=== PATIENT | female | born 1965 | race Caucasian/White ===

== ENCOUNTER 2019-02-26 10:49 | Outpatient (REF) | payer BC, SELFPAY ==
[2019-02-26 16:18] LABS: Absolute Basophil Count 0.03 k/cumm (0.0-0.2); Absolute Eosinophil Count 0.16 k/cumm (0.0-0.7); Absolute Monocyte Count 0.69 k/cumm (0.11-0.7); Absolute Neutrophil Count 4.36 k/cumm (1.2-6.7); Basophils % 0.5; Eosinophils % 2.4; HCT 43.8 % (36.0-46.0); HGB 14.6 g/dL (12.0-15.5); Lymphocytes % 21.1; Mean Corp. HGB Concentration 33.3 g/dL (32.0-36.0); Mean Corpuscular Hemoglobin 33.3 pg (27.0-33.0); Mean Corpuscular Volume 99.8 fL (80-95); Mean Platelet Volume 10.4 fL (8.0-11.0); Monocytes % 10.4; Neutrophils % 65.6; Platelet Count 216 x1000/uL (130-400); RBC 4.39 m/cumm (4.00-5.20); RBC Distribution Width 12.6 % (11.7-14.6); White Blood Cell Count 6.64 k/cumm (4.4-10.8)
[2019-02-26 16:38] LABS: ALT 33 U/L (14-59); AST 26 U/L (15-37); Albumin 4.5 g/dL (3.4-5.0); Alkaline Phosphatase 90 U/L (46-116); BUN 17 mg/dL (7-18); Bilirubin, Total 1.2 mg/dL (0.2-1.0); CREATININE 0.77 mg/dL (0.55-1.02); Calcium 9.5 mg/dL (8.5-10.1); Calculated LDL 177 mg/dL; Chloride 101 mmol/L (98-107); Cholesterol 286 mg/dL (<200); Glucose 95 mg/dL (74-106); HDL Cholesterol 76 mg/dL (40-60); Potassium 3.9 mmol/L (3.5-5.1); Sodium 139 mmol/L (136-145); TSH (W/Ref FT4) 2.99 uIU/mL (0.36-3.74); Total Protein 7.7 g/dL (6.4-8.2); Triglyceride 167 mg/dL (<150)
== END 2019-02-26 11:09 ==
LOC: NCHCN 10:49
PROVIDERS: PCP Nurse Practitioner Family; Visit Provider Family Medicine
DX: E78.5 Hyperlipidemia, unspecified (principal); E03.9 Hypothyroidism, unspecified; F10.10 Alcohol abuse, uncomplicated
CPT/HCPCS: 80053; 80061; 84443; 85025

== ENCOUNTER 2019-05-30 15:05 | Outpatient (REF) | payer BC, SELFPAY ==
[2019-05-30 22:01] LABS: ALT 37 U/L (14-59); AST 32 U/L (15-37); Albumin 4.7 g/dL (3.4-5.0); Alkaline Phosphatase 98 U/L (46-116); BUN 14 mg/dL (7-18); Bilirubin, Total 0.5 mg/dL (0.2-1.0); CREATININE 0.64 mg/dL (0.55-1.02); Calcium 9.2 mg/dL (8.5-10.1); Chloride 99 mmol/L (98-107); Glucose 80 mg/dL (74-106); Potassium 3.9 mmol/L (3.5-5.1); Sodium 137 mmol/L (136-145)
[2019-05-30 22:19] LABS: Anion Gap 11.5 mmol/L (3-11); CO2 26.5 mmol/L (21.0-32.0)
[2019-06-02 13:10] LABS: IgA 192 mg/dL (85-499); Tissue Transglutaminase IgA <1.2 U/mL (<4.0)
== END 2019-05-30 15:25 ==
LOC: NCHCN 15:05
PROVIDERS: PCP Nurse Practitioner Family; Visit Provider Internal Medicine
DX: R10.9 Unspecified abdominal pain (principal)
CPT/HCPCS: 80053; 82784; 83516

== ENCOUNTER 2022-01-18 17:07 | Outpatient (REF) | payer BC, SELFPAY | END 2022-01-18 17:08 | disposition home or self-care (01) | LOC: NCHCN 17:07 | PROVIDERS: PCP Nurse Practitioner Family; Visit Provider Family Medicine | DX: J02.9 Acute pharyngitis, unspecified (principal) | CPT/HCPCS: 87070 ==

== ENCOUNTER 2022-05-11 13:43 | Outpatient (REF) | payer SELFPAY ==
[2022-05-12 08:22] LABS: Bilirubin Negative (Negative); Blood Negative (Negative); Clarity Clear (Clear); Glucose Negative (Negative); Ketones Negative (Negative); Leukocyte Esterase Negative (Negative); Nitrite Negative (Negative); Specific Gravity 1.025 (1.005-1.025); Urobilinogen 0.2 EU/dL (Up TO 0.2); pH 6.5 (5-8)
== END 2022-05-11 13:44 | disposition home or self-care (01) ==
LOC: NCHCN 13:43
PROVIDERS: PCP Nurse Practitioner Family; Visit Provider Nurse Practitioner Family
DX: T30.0 Burn of unspecified body region, unspecified degree (principal)
CPT/HCPCS: 81003; 83874

== ENCOUNTER 2023-03-16 16:18 | Outpatient (REF) | payer OTHER, SELFPAY ==
--- OUTSIDE RECORDS SUMMARY | 2023-03-16 16:21 | XMS_ITS | CCD ---
Author Name Unknown Address [address] [place] [id number] Organization Unknown Address [address], [place] [id number] Care Team Providers Care B2B Managed Service Sales Exec Name Role Phone DAMON ORDAZ Attending Physician [phone] ZOLTAN KRISHNAN Er Physician 7 [phone] LEONILA Barnett Registered Nurse [phone] Vital Signs Vital Sign Value Unit Date/Time Recent/Initial ? BMI (Body Mass Index) 26.63 kg/m^2 01/01/2022 16: 37 Initial VS Weight Measured 170 lbs 01/01/2022 16:37 Ini tial VS Height 67 in 01/01/2022 16:37 Initial VS BSA (Body Surface Area) 1.91 m^2 01/01/2022 1 6:37 Initial VS BP Systolic 162 mmHg 01/01/2022 16:37 Initial VS BP Diastolic 111 mmHg 01/01/2022 16:37 Initia l VS Respiratory Rate 16 bpm 01/01/2022 16:37 In itial VS Heart Rate 81 bpm 01/01/2022 16:37 Initial VS O2 % BldC Oximetry 98 % 01/01/2022 16:37 Initial VS Body Temperature 36.4 degrees 01/01/2022 16:37 In itial VS Allergies Allergy Code Allergy Type Reaction Status No Known Allergies {Clinical monitoring unavailable} 0 Drug allergy Active Procedures Unknown or Not Available. History of Immunizations Unknown or Not Available. Problems Unknown or Not Available. Results Unknown or Not Available. Active Medications Unknown or Not Available. Medications Administered During Visit Unknown or Not Available. Encounters Encounter Diagnosis Diagnosis Code Start Date Contusion of left little fin omaira without damage to nail, initial encounter [id number] 01/01/2022 Social History Smoking Status Code Start Date End Date Former smoker [id number] Patient Decision Aids Unknown or Not Available. Discharge Instructions You were admitted to [facility] on 01/01/2022 14:11 with a principal diagnosis of Contusion of left little finger without damage to nail, initial encounter You were discharged from [facility] on 01/01/2022 17:20 Should you have any questions prior to discharge, please contact a member of your healthcare team. If you have left the hospital and have any questions, please contact your primary care physician. Chief Complaint and Reason For Visit Chief Complaint Date of Onset L HAND PAIN AND SWELLING FROM FALL Function Status Unknown or Not Available. Plan of Care Unknown or Not Available. Referral/Transition of Care Unknown or Not Available.
--- OUTSIDE RECORDS SUMMARY | 2023-03-16 16:22 | XMS_ITS | CCD ---
Author Name Unknown Address [address] [place] [phone] Organization Unknown Address [address] [place] [phone] Care Team Providers Care Loan Officer Assistant Name Role Phone SACHA VALIENTE Attending Physician [phone] CARA RAE Er Physician 1 [phone] SKYLA Otto Registered Nurse [phone] Vital Signs Vital Sign Value Unit Date/Time Recent/Initial ? BMI (Body Mass Index) 26.63 kg/m^2 01/02/2022 07: 51 Initial VS Weight Measured 170 lbs 01/02/2022 07:51 Ini tial VS Height 67 in 01/02/2022 07:51 Initial VS BSA (Body Surface Area) 1.91 m^2 01/02/2022 0 7:51 Initial VS BP Systolic 146 mmHg 01/02/2022 07:51 Initial VS BP Diastolic 95 mmHg 01/02/2022 07:51 Initia l VS Respiratory Rate 16 bpm 01/02/2022 07:51 In itial VS Heart Rate 73 bpm 01/02/2022 07:51 Initial VS O2 % BldC Oximetry 100 % 01/02/2022 07:51 Initial VS Body Temperature 36.9 degrees 01/02/2022 07:51 In itial VS Allergies Allergy Code Allergy Type Reaction Status No Known Allergies {Clinical monitoring unavailable} 0 Drug allergy Active Procedures Unknown or Not Available. History of Immunizations Unknown or Not Available. Problems Unknown or Not Available. Results Unknown or Not Available. Active Medications Unknown or Not Available. Medications Administered During Visit Unknown or Not Available. Encounters Encounter Diagnosis Diagnosis Code Start Date Fracture of unspecified phal anx of left little finger, initial encounter for closed fracture [id number] 01/02/2022 Social History Smoking Status Code Start Date End Date Former smoker [id number] Patient Decision Aids Unknown or Not Available. Discharge Instructions You were admitted to [facility] on 01/02/2022 07:43 with a principal diagnosis of Fracture of unspecified phalanx of left little finger, initial encounter for closed fracture You were discharged from [facility] on 01/02/2022 09:16 Should you have any questions prior to discharge, please contact a member of your healthcare team. If you have left the hospital and have any questions, please contact your primary care physician. Chief Complaint and Reason For Visit Chief Complaint Date of Onset LEFT HAND FINGER INJURY Function Status Unknown or Not Available. Plan of Care Unknown or Not Available. Referral/Transition of Care Unknown or Not Available.
[2023-03-16 21:20] LABS: HCT 41.2 % (36.0-46.0); HGB 13.9 g/dL (11.2-15.7); MCH 34.7 pg (27.0-33.0); MCHC 33.7 % (32.0-36.0); MCV 103 fL (80-95); MPV 10.6 fL (8.0-11.0); Platelet Count 204 10^3/uL (130-400); RBC 4.01 10^6/uL (3.93-5.22); RDW 13.2 % (11.7-14.6); RDW-SD 50.4 fL
[2023-03-16 22:54] LABS: Vitamin D 25 Total 14.7 ng/mL (30-100)
[2023-03-16 23:08] LABS: ALT 73 U/L (14-59); AST 46 U/L (15-37); Albumin 4.6 g/dL (3.4-5.0); Alkaline Phosphatase 92 U/L (46-116); Anion Gap 12.2 mmol/L (3-11); BUN 10 mg/dL (7-18); Bilirubin, Total 0.8 mg/dL (0.2-1.0); CO2 22.8 mmol/L (21.0-32.0); CREATININE 0.7 mg/dL (0.55-1.02); Calcium 9.4 mg/dL (8.5-10.1); Chloride 100 mmol/L (98-107); Estimated GFR 99.57 (mL/min/1.73m2); Folate 7.2 ng/mL (8.6-20.0); Glucose 107 mg/dL (74-106); Potassium 3.9 mmol/L (3.5-5.1); Sodium 135 mmol/L (136-145); TSH (W/Ref FT4) 0.68 uIU/mL (0.36-3.74); Total Protein 8.4 g/dL (6.4-8.2); Vitamin B12 237 pg/mL (193-986)
== END 2023-03-16 16:19 | disposition home or self-care (01) ==
LOC: NCHCN 16:18
PROVIDERS: PCP Nurse Practitioner Family; Visit Provider Family Medicine
DX: E03.9 Hypothyroidism, unspecified (principal); D53.1 Other megaloblastic anemias, not elsewhere classified; F32.9 Major depressive disorder, single episode, unspecified
CPT/HCPCS: 80053; 82306; 85027; 82607; 82746; 84443

== ENCOUNTER 2023-05-23 19:43 | Outpatient (REF) | payer OTHER, SELFPAY ==
[2023-05-23 21:11] LABS: Anion Gap 8.8 mmol/L (3-11); BUN 11 mg/dL (7-18); CO2 26.2 mmol/L (21.0-32.0); CREATININE 0.7 mg/dL (0.55-1.02); Calcium 9.1 mg/dL (8.5-10.1); Chloride 101 mmol/L (98-107); Estimated GFR 99.57 (mL/min/1.73m2); Glucose 97 mg/dL (74-106); Potassium 3.9 mmol/L (3.5-5.1); Sodium 136 mmol/L (136-145)
== END 2023-05-23 19:44 | disposition home or self-care (01) ==
LOC: NCHCN 19:43
PROVIDERS: PCP Nurse Practitioner Family; Visit Provider Nurse Practitioner Family
DX: I10 Essential (primary) hypertension (principal)
CPT/HCPCS: 80048

== ENCOUNTER 2023-05-24 15:09 | Outpatient (REF) | payer OTHER, SELFPAY ==
[2023-05-24 15:58] LABS: C Diff PCR Negative (Negative)
[2023-05-25 10:45] LABS: Campylobacter PCR Negative (Negative); Salmonella PCR Negative (Negative); Shiga Toxin PCR Negative (Negative); Shigella/Enteroinvasive Ecoli Negative (Negative)
== END 2023-05-24 15:10 | disposition home or self-care (01) ==
LOC: NCHCN 15:09
PROVIDERS: PCP Nurse Practitioner Family; Referring Provider Nurse Practitioner Family; Visit Provider Nurse Practitioner Family
DX: R19.5 Other fecal abnormalities (principal)
CPT/HCPCS: 87493; 87505

== ENCOUNTER 2023-09-28 13:33 | Outpatient (REF) | payer OTHER, SELFPAY ==
[2023-09-28 15:12] LABS: Anion Gap 9.9 mmol/L (3-11); BUN 6 mg/dL (7-18); CO2 28.1 mmol/L (21.0-32.0); CREATININE 0.6 mg/dL (0.55-1.02); Calcium 9.1 mg/dL (8.5-10.1); Chloride 105 mmol/L (98-107); Estimated GFR 103.33 (mL/min/1.73m2); Glucose 94 mg/dL (74-106); Potassium 3.7 mmol/L (3.5-5.1); Sodium 143 mmol/L (136-145)
== END 2023-09-28 13:34 | disposition home or self-care (01) ==
LOC: NCHCN 13:33
PROVIDERS: PCP Nurse Practitioner Family; Visit Provider Nurse Practitioner Family
DX: I10 Essential (primary) hypertension (principal)
CPT/HCPCS: 80048

== ENCOUNTER 2024-01-11 15:38 | Outpatient (REF) | payer OTHER, SELFPAY ==
[2024-01-11 18:03] LABS: Calculated LDL 179 mg/dL (<100); Cholesterol 284 mg/dL (<200); HDL Cholesterol 84 mg/dL (40-60); Triglyceride 107 mg/dL (<150)
[2024-01-13 13:16] LABS: Lipoprotein (a) 17 nmol/L (<75)
== END 2024-01-11 15:39 | disposition home or self-care (01) ==
LOC: NCHCN 15:38
PROVIDERS: Student in an Organized Health Care Education/Training Program; PCP Nurse Practitioner Family; Visit Provider Nurse Practitioner Family
DX: Z82.49 Family history of ischemic heart disease and other diseases of the circulatory system (principal)
CPT/HCPCS: 80061; 83695

== ENCOUNTER 2024-05-06 15:22 | Outpatient (REF) | payer OTHER, SELFPAY ==
[2024-05-06 21:10] LABS: HCT 39.2 % (36.0-46.0); HGB 13.1 g/dL (11.2-15.7); MCH 34.2 pg (27.0-33.0); MCHC 33.4 % (32.0-36.0); MCV 102 fL (80-95); MPV 10.4 fL (8.0-11.0); Platelet Count 200 10^3/uL (130-400); RBC 3.83 10^6/uL (3.93-5.22); RDW 12.9 % (11.7-14.6); RDW-SD 48.2 fL; WBC 7.34 10^3/uL (4.4-10.8)
[2024-05-06 21:38] LABS: ALT 24 U/L (14-59); AST 21 U/L (15-37); Albumin 4.3 g/dL (3.4-5.0); Alkaline Phosphatase 87 U/L (46-116); Anion Gap 3.7 mmol/L (3-11); BUN 14 mg/dL (7-18); Bilirubin, Total 0.49 mg/dL (0.2-1.0); CO2 29.3 mmol/L (21.0-32.0); CREATININE 0.8 mg/dL (0.55-1.02); Calcium 9.6 mg/dL (8.5-10.1); Calculated LDL 121 mg/dL (<100); Chloride 99 mmol/L (98-107); Cholesterol 221 mg/dL (<200); Glucose 102 mg/dL (74-106); HDL Cholesterol 81 mg/dL (40-60); Magnesium 2.1 mg/dL (1.8-2.4); Potassium 3.4 mmol/L (3.5-5.1); Sodium 132 mmol/L (136-145); Total Protein 7.5 g/dL (6.4-8.2); Triglyceride 96 mg/dL (<150); Vitamin B12 813 pg/mL (193-986)
== END 2024-05-06 15:23 | disposition home or self-care (01) ==
LOC: NCHCN 15:22
PROVIDERS: PCP Nurse Practitioner Family; Visit Provider Nurse Practitioner Family
DX: I10 Essential (primary) hypertension (principal); F10.10 Alcohol abuse, uncomplicated
CPT/HCPCS: 80053; 80061; 85027; 82607; 83735

== ENCOUNTER 2024-06-11 16:05 | Outpatient (REF) | payer OTHER, SELFPAY ==
[2024-06-11 22:07] LABS: Anion Gap 6.4 mmol/L (3-11); BUN 14 mg/dL (7-18); CO2 30.6 mmol/L (21.0-32.0); CREATININE 0.7 mg/dL (0.55-1.02); Calcium 9.6 mg/dL (8.5-10.1); Chloride 104 mmol/L (98-107); Estimated GFR 98.95 (mL/min/1.73m2); Glucose 123 mg/dL (74-106); Sodium 141 mmol/L (136-145)
== END 2024-06-11 16:06 | disposition home or self-care (01) ==
LOC: NCHCN 16:05
PROVIDERS: Visit Provider Nurse Practitioner Family
DX: I10 Essential (primary) hypertension (principal)
CPT/HCPCS: 80048

== ENCOUNTER 2024-10-29 21:15 | Outpatient (REF) | payer OTHER, SELFPAY ==
[2024-10-31 10:48] LABS: Lyme Ab w Rflx to Lyme Confirm Negative (Negative)
== END 2024-10-29 21:16 | disposition home or self-care (01) ==
LOC: NCHCN 21:15
PROVIDERS: Visit Provider Family Medicine
DX: S80.262A Insect bite (nonvenomous), left knee, initial encounter (principal); W57.XXXA Bitten or stung by nonvenomous insect and other nonvenomous arthropods, initial encounter
CPT/HCPCS: 86618